=== PATIENT | female | born 1950 | race Caucasian/White ===

== ENCOUNTER 2017-02-13 10:49 | Emergency (ER) | payer OTHER ==
--- NOTE | 2017-02-13 11:26 | DR.GENAD ---
HPI - PCP Primary Care Physician: janak - HPI Comment HPI Comment: PATIENT PAIN PERCEPTION ON RIGHT SIDE POOR DUE TO PREVIOUS CVA. CURRENTLY LEFT PRECORDIAL DISCOMFORT AND INCRESING EDEMA TO HER EXTREMITIES. THE SWELLING GIVE HER DISCOMFORT. HER BLOOD PRESSURE IS ALSO RUNNING HIGH EVEN WITH HER MEDICATION. SHE IS WEAK. - Complaint/Symptoms Chief Complaint Doctors Comments: SWELLING EXTREMITIES, ELEVATED BP AND LELT SIDED CHEST PAIN. Chief Complaint:: patoient stated she took her blood pressure at home and it was 160/102. she stted she has been swelling in her hands for a couple of weeks. - Nurses notes reviewed Nurses Notes Review: Yes - Source History Provided: Patient - Mode of Arrival Mode of Arrival: Ambulatory - Timing Onset of Chief Complaint: 02/06/17 Came on: Suddenly - Duration Duration: Constant Duration: Days - Severity Severity: Moderate PMH - PMH Past Medical History: Yes Past Medical History: Dyslipidemia, Hypertension Past Surgical History: Yes Surgical History: Appendectomy, Hysterectomy - Family History History of Family Medical Conditions: No - Social History Does patient currently use any type of tobacco product: No Have you used tobacco products in the last 12 months: No Type of Tobacco Use: None Does any household member use tobacco: No Alcohol Use: None Do you use any recreational Drugs:: No Lives With: Family Lives Where: Home - infectious screening In the last 2 months have you had wt loss of >10#?: NO Have you had fever, night sweats or hemotysis?: No Have you traveled outside the country in the last 6 months?: No Isolation: Standard ROS - Review of Systems Constitutional: Weakness, Fatigue. negative: Chills, Fever Eyes: No Symptoms Reported. negative: Eye Pain, Discharge ENTM: Nose Congestion. negative: Ear Pain, Nose Discharge, Throat Pain Respiratoy: Non-Productive Cough, Short of Breath. negative: Wheezing, Hemoptysis Cardiovascular: Chest Pain, Edema. negative: Palpitations, Syncope Gastrointestinal/Abdominal: Nausea. negative: Abdominal Pain, Constipation, Diarrhea, Vomiting Genitourinary: No Symptoms Reported. negative: Dysuria, Frequency, Hematuria Neurological: Weakness. negative: Headache, Dizziness Musculoskeletal: Muscle Pain Integumentary: No Symptoms Reported Hematologic/Lymphatic: No Symptoms Reported Endocrine: No Symptoms Reported All Other Systems: Reviewed and Negative PE - Vital Signs Vitals: Temperature 98.0 F Pulse Rate [Right Brachial] 72 Pulse Rate 78 Respiratory Rate 18 Blood Pressure [Right Arm] 120/73 Blood Pressure 134/75 O2 Sat by Pulse Oximetry 93 - General Limitations: No Limitations General Appearance: Alert - Head Head Exam: Normal Inspection - Eyes Eye exam: Normal Appearance - ENT ENT Exam: Normal External Ear Exam External Ear Exam: Normal External Inspection TM/Canal Exam: Bilateral Normal Nose Exam: Normal Nose Exam Mouth Exam: Normal Inspection Throat Exam: Normal Inspection - Neck Neck Exam: Normal Inspection - Chest Chest Inspection: Symmetric Chest Wall Rise - Respiratory Respiratory Exam: Normal Lung Sounds Bilat Respiratory Exam: Bilateral Clear to Auscultation - Cardiovascular Cardiovascular Exam: Regular Rate, Normal Rhythm, Normal Heart Sounds - Abdominal Exam Abdominal Exam: Normal Bowel Sounds, Soft. negative: Tenderness - Extremities Extremities Exam: Edema. negative: Full ROM, Tenderness - Back Back Exam: Normal Inspection - Neurologic Neurological Exam: Alert, Oriented X3, Motor Sensory Deficit (RESIDUAL RIGHT SIDED FROM PREVIUOS STROKE.) - Psychiatric Psychiatric Exam: Anxious MDM - Additional Information Additional Information Obtained From: Family - Differential Diagnosis Differential Diagnosis: CHEST PAIN, SWELLIN/EDEMA, HYPERTENSION Course - Treatment Treatment: SEE ORDERS. - Consultation Consultation Comments: DISCUSS PATIENT WITH DR. VALVERDE. HE WILL ADMIT PATIENT. - Education/Counseling Education/Counseling: Patient, Family, Education Educated On: Diagnosis ROR - Labs Reviewed Laboratory Results Reviewed?: Yes Result Diagrams: 02/14/17 04:20 02/14/17 04:20 Laboratory: WBC 6.6 X10^3/uL (3.6-10.0) 02/14/17 04:20 RBC 4.29 X10^6/uL (3.5-5.4) 02/14/17 04:20 Hgb 13.1 g/dL (12.0-16.0) 02/14/17 04:20 Hct 39.0 % (36.0-47.0) 02/14/17 04:20 MCV 90.8 fL (80.0-100.0) 02/14/17 04:20 MCH 30.6 pg (27.0-34.0) 02/14/17 04:20 MCHC 33.7 g/dL (33.0-35.0) 02/14/17 04:20 RDW 12.3 % (11.6-16.5) 02/14/17 04:20 Plt Count 219 X10^3/uL (150.0-450.0) 02/14/17 04:20 MPV 10.5 fL (7.4-11.0) 02/14/17 04:20 Neut % 40.2 % (42.0-75.0) L 02/14/17 04:20 Lymph % 47.0 % (21.0-51.0) 02/14/17 04:20 [place] % 8.8 % (0.0-13.0) 02/14/17 04:20 Eos % 3.2 % (0.9-2.9) H 02/14/17 04:20 Baso % 0.8 % (0.2-1.0) 02/14/17 04:20 Neut # 2.6 x10^3/uL (2.2-4.8) 02/14/17 04:20 Lymph # 3.1 X10^3/uL (1.3-2.9) H 02/14/17 04:20 [place] # 0.6 x10^3/uL (0.3-0.8) 02/14/17 04:20 Eos # 0.2 x10^3/uL (0.0-0.2) 02/14/17 04:20 Baso # 0.0 X10^3/uL (0.0-0.1) 02/14/17 04:20 Absolute Nucleated RBC 0.1 /100WBC 02/14/17 04:20 INR Target Range - 02/14/17 04:20 INR 1.61 (0.8-1.3) H 02/14/17 04:20 Sodium 143 mmol/L (136-145) 02/14/17 04:20 Corrected Sodium TNP 02/14/17 04:20 Potassium 3.2 mmol/L (3.5-5.1) L 02/14/17 04:20 Chloride 105 mmol/L (98-107) 02/14/17 04:20 Carbon Dioxide 27.6 mmol/L (21-32) 02/14/17 04:20 BUN 10 mg/dL (7-18) 02/14/17 04:20 Creatinine 0.80 mg/dL (0.55-1.02) 02/14/17 04:20 Est GFR (MDRD) Af Amer > 60 (>60) 02/14/17 04:20 Est GFR (MDRD) Non-Af > 60 (>60) 02/14/17 04:20 Glucose 93 mg/dL (65-99) 02/14/17 04:20 Calcium 8.6 mg/dL (8.5-10.1) 02/14/17 04:20 Corrected Calcium TNP 02/14/17 04:20 Total Bilirubin 0.30 mg/dL (0.2-1.0) 02/14/17 04:20 AST 30 Units/L (15-37) 02/14/17 04:20 ALT 23 Units/L (12-78) 02/14/17 04:20 Alkaline Phosphatase 66 Units/L (46-116) 02/14/17 04:20 Creatine Kinase 143 Units/L (26-192) 02/14/17 00:20 CK-MB (CK-2) 2.1 ng/mL (0-4.0) 02/14/17 00:20 CK/CKMB % Calc 1.5 % (<4) 02/14/17 00:20 Troponin I < 0.02 ng/mL (0-1.5) 02/14/17 00:20 B-Natriuretic Peptide 34.0 pg/mL (0-79) 02/13/17 11:46 Total Protein 7.7 g/dL (6.4-8.2) 02/14/17 04:20 Albumin 3.4 g/dL (3.4-5.0) 02/14/17 04:20 Globulin 4.3 g/dL (2.5-4.5) 02/14/17 04:20 Albumin/Globulin Ratio 0.8 Ratio (1.1-2.1) L 02/14/17 04:20 Specimen Type Clean catch urine 02/13/17 14:12 Urine Color Yellow (YELLOW) 02/13/17 14:12 Urine Appearance Clear (CLEAR) 02/13/17 14:12 Urine pH 7.0 (5.0 - 8.0) 02/13/17 14:12 Ur Specific [place] 1.005 (1.000-1.030) 02/13/17 14:12 Urine Protein Negative (NEGATIVE) 02/13/17 14:12 Urine Glucose (UA) Negative (NEGATIVE) 02/13/17 14:12 Urine Ketones Negative (NEGATIVE) 02/13/17 14:12 Urine Occult Blood Negative (NEGATIVE) 02/13/17 14:12 Urine Nitrite Negative (NEGATIVE) 02/13/17 14:12 Urine Bilirubin Negative (NEGATIVE) 02/13/17 14:12 Urine Urobilinogen Normal (NORMAL) 02/13/17 14:12 Ur Leukocyte Esterase Negative (NEGATIVE) 02/13/17 14:12 Urine RBC 0-2 /HPF (NEGATIVE) 02/13/17 14:12 Urine WBC 0-2 /HPF (NEGATIVE) 02/13/17 14:12 Ur Squamous Epith Cells Rare /HPF (NEGATIVE) 02/13/17 14:12 Urine Bacteria Trace /HPF (NEGATIVE) 02/13/17 14:12 Ur Culture Indicated? No/not indicated 02/13/17 14:12 - XRAY XRAY Interpreted by: Radiologist XRAY Findings: DISCUSS REPORT WITH OPATIENT. - EKG Rhythm: NSR (EKG NOTED) - Diagnosis Discharge Problem: Swelling Chest pain Qualifiers: Chest pain type: precordial pain Qualified Code(s): R07.2 - Precordial pain HTN (hypertension) Qualifiers: Hypertension type: essential hypertension Qualified Code(s): I10 - Essential ( primary) hypertension - Discharge Plan Disposition: 09 ADMITTED INPATIENT Condition: Stable - Follow ups/Referrals - Instructions
[2017-02-13 12:04] LABS: BASOPHILS % (AUTO) 0.8 % (0.2-1.0); EOSINOPHILS # (AUTO) 0.1 x10^3/uL (0.0-0.2); EOSINOPHILS % (AUTO) 2.8 % (0.9-2.9); HEMATOCRIT 37.9 % (36.0-47.0); MEAN CORPUSCULAR HEMOGLOBIN 30.7 pg (27.0-34.0); MEAN CORPUSCULAR HGB CONC 34.4 g/dL (33.0-35.0); MEAN CORPUSCULAR VOLUME 89.3 fL (80.0-100.0); MEAN PLATELET VOLUME 9.9 fL (7.4-11.0); MONOCYTES # (AUTO) 0.4 x10^3/uL (0.3-0.8); NEUTROPHILS % (AUTO) 43.4 % (42.0-75.0); PLATELET COUNT 222 X10^3/uL (150.0-450.0); RED BLOOD COUNT 4.24 X10^6/uL (3.5-5.4); RED CELL DISTRIBUTION WIDTH 12.3 % (11.6-16.5); WHITE BLOOD COUNT 4.5 X10^3/uL (3.6-10.0)
--- NOTE | 2017-02-13 12:10 | RAD ---
HISTORY: Chest pain Study: Single view chest Comparison: None Findings: Single portable upright view. Lung volumes are reduced with resultant bronchovascular crowding. The lungs are clear without consolidation, effusion or pneumothorax. The cardiac and mediastinal contour s are within normal limits. The soft tissues are unremarkable. IMPRESSION: 1. Low lung volumes without acute abnormality. Reported By:
[2017-02-13 12:12] LABS: BLOOD UREA NITROGEN 11 mg/dL (7-18); CALCIUM 8.9 mg/dL (8.5-10.1); CARBON DIOXIDE 27.4 mmol/L (21-32); CHLORIDE 106 mmol/L (98-107); COR NA(FOR HYPERGLY) 143 mmol/L (136-145); CREATININE 0.93 mg/dL (0.55-1.02); GLUCOSE 120 mg/dL (65-99); SODIUM 143 mmol/L (136-145); TROPONIN I < 0.02 ng/mL (0-1.5); eGFR BLACK RACES > 60 (>60); eGFR NON BLACK RACES > 60 (>60)
[2017-02-13 12:14] LABS: ALANINE AMINOTRANSFERASE 24 Units/L (12-78); ALBUMIN 3.7 g/dL (3.4-5.0); ALKALINE PHOSPHATASE 66 Units/L (46-116); ASPARTATE AMINO TRANSFERASE 31 Units/L (15-37); CKMB % 1.2 % (<4); CREATINE KINASE 162 Units/L (26-192)
[2017-02-13 14:37] LABS: BILIRUBIN,URINE NEGATIVE (NEGATIVE); GLUCOSE, URINE NEGATIVE (NEGATIVE); KETONES,URINE NEGATIVE (NEGATIVE); NITRITES,URINE NEGATIVE (NEGATIVE); UROBILINOGEN,URINE NORMAL (NORMAL)
[2017-02-13 14:43] LABS: BLOOD/HEMOGLOBIN,URINE NEGATIVE (NEGATIVE); LEUKOCYTE ESTERASE ,URINE NEGATIVE (NEGATIVE); PROTEIN,URINE NEGATIVE (NEGATIVE)
[2017-02-13 14:52] LABS: APPEARANCE,URINE CLEAR (CLEAR); BACTERIA,URINE TRACE /HPF (NEGATIVE); COLOR,URINE YELLOW (YELLOW); RBC,URINE 0-2 /HPF (NEGATIVE); SQUAMOUS EPITHELIAL CELL,UR RARE /HPF (NEGATIVE)
[2017-02-13 18:09] LABS: CKMB % 1.6 % (<4); CREATINE KINASE 157 Units/L (26-192); CREATINE KINASE MB 2.5 ng/mL (0-4.0); TROPONIN I < 0.02 ng/mL (0-1.5)
[2017-02-13] MEDS ORDERED: COLACE CAP 100 MG PO PRN (19:59)
[2017-02-13 21:16] VITALS: BMI 23.2
[2017-02-14 01:24] LABS: CKMB % 1.5 % (<4); CREATINE KINASE 143 Units/L (26-192); CREATINE KINASE MB 2.1 ng/mL (0-4.0); TROPONIN I < 0.02 ng/mL (0-1.5)
[2017-02-14] MEDS: NORCO 10/325 TAB PO PRN ×2 (01:28→22:01)
[2017-02-14 05:19] LABS: BASOPHILS % (AUTO) 0.8 % (0.2-1.0); EOSINOPHILS # (AUTO) 0.2 x10^3/uL (0.0-0.2); EOSINOPHILS % (AUTO) 3.2 % (0.9-2.9); HEMOGLOBIN 13.1 g/dL (12.0-16.0); LYMPHOCYTES # (AUTO) 3.1 X10^3/uL (1.3-2.9); MEAN CORPUSCULAR HEMOGLOBIN 30.6 pg (27.0-34.0); MEAN CORPUSCULAR HGB CONC 33.7 g/dL (33.0-35.0); MEAN CORPUSCULAR VOLUME 90.8 fL (80.0-100.0); MEAN PLATELET VOLUME 10.5 fL (7.4-11.0); MONOCYTES # (AUTO) 0.6 x10^3/uL (0.3-0.8); MONOCYTES % (AUTO) 8.8 % (0.0-13.0); NEUTROPHILS # (AUTO) 2.6 x10^3/uL (2.2-4.8); NEUTROPHILS % (AUTO) 40.2 % (42.0-75.0); PLATELET COUNT 219 X10^3/uL (150.0-450.0); RED BLOOD COUNT 4.29 X10^6/uL (3.5-5.4); RED CELL DISTRIBUTION WIDTH 12.3 % (11.6-16.5); WHITE BLOOD COUNT 6.6 X10^3/uL (3.6-10.0)
[2017-02-14 05:38] LABS: ALANINE AMINOTRANSFERASE 23 Units/L (12-78); ALBUMIN 3.4 g/dL (3.4-5.0); ALKALINE PHOSPHATASE 66 Units/L (46-116); ASPARTATE AMINO TRANSFERASE 30 Units/L (15-37); BLOOD UREA NITROGEN 10 mg/dL (7-18); CALCIUM 8.6 mg/dL (8.5-10.1); CARBON DIOXIDE 27.6 mmol/L (21-32); CHLORIDE 105 mmol/L (98-107); GLUCOSE 93 mg/dL (65-99); SODIUM 143 mmol/L (136-145); TOTAL PROTEIN 7.7 g/dL (6.4-8.2); eGFR BLACK RACES > 60 (>60); eGFR NON BLACK RACES > 60 (>60)
[2017-02-14] MEDS ORDERED: K-DUR TAB 20 MEQ PO PRN (05:45)
[2017-02-14] MEDS ORDERED: POTASSIUM CHLORIDE LIQ 20 MEQ UDC PO PRN (05:45)
[2017-02-14] MEDS ORDERED: K-LYTE EFFERVESCENT PO PRN (05:45)
[2017-02-14] MEDS ORDERED: K-RIDER 10 MEQ/NS 100 ML 10 MEQ/100 ML BAG IV PRN (05:45)
[2017-02-14] MEDS ORDERED: NORCO 10/325 TAB PO PRN (12:44)
[2017-02-14] MEDS ORDERED: [UNRECOGNIZED DRUG - OTHER] PO SCH (12:45)
[2017-02-14] MEDS ORDERED: [UNRECOGNIZED DRUG - OTHER] PO SCH (12:45)
[2017-02-14] MEDS ORDERED: [UNRECOGNIZED DRUG - OTHER] PO SCH (12:45)
[2017-02-14] MEDS ORDERED: ZANTAC PO SCH (13:00)
[2017-02-14] MEDS: DILANTIN CAP 100 MG EXT REL PO SCH ×2 (14:45→22:03)
[2017-02-14] MEDS: ZANAFLEX PO SCH ×2 (14:45→22:03)
[2017-02-14] MEDS: SINGULAIR TAB 10 MG PO SCH (14:46)
--- NOTE | 2017-02-14 15:34 | DR.H&P ---
H&P - History & Physical for Day of: H&P Date: 02/13/17 - Chief Complaint Chief Complaint: CHEST PAIN, LOWER EXTREMITY EDEMA - Allergies Allergies/Adverse Reactions: Allergies Allergy/AdvReac Type Severity Reaction Status Date / Time No Known Drug Allergy Allergy Verified 02/13/17 10:59 - History of Present Illness History of Present Illness: THIS IS A 66 YEAR OLD FEMALE, WHO IS A PATIENT OF OURS. SHE PRESENTS TO THE EMERGENCY ROOM WITH COMPLAINTS OF LEFT-SIDED CHEST PAIN, ELEVATED BLOOD PRESSURE, AND INCREASED SWELLING TO LOWER EXTREMITIES. 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 PATIENT REPORTS BLOOD PRESSURE WAS 160/102 AT HOME AND SHE REPORTS COMPLIANCE WITH HOME MEDICATIONS. SHE REPORTS ASSOCIATED FATIGUE, MALAISE, NOSE CONGESTION, AND GENERLIZED MUSCLE WEAKNESS. SHE DENIES FEVER. LABS OBTAINED. CBC WNL. CMP WNL EXCEPT: GLUCOSE 120. CARDIAC ENZYMES WNL. EKG: SINUS RHYTHM, RATE 71. CHEST XRAY REPORTS LOW LUNG VOLUMES; NO ACUTE ABNORMALITY. WE WILL ADMIT PATIENT FOR FURTHER TREATMENT AND EVALUATION. WE WILL FOLLOW UP IN AM WITH LABS. - Past Medical History Past Medical History: Anemia, Arthritis, CVA, Dyslipidemia, GERD, Hypertension Additional Medical History: Vision Deficit, Previous Blood Transfusion - Past Surgical History Surgical History: Appendectomy, Hysterectomy - Family History Family Medical History: denies: Diabetes Mellitus, Cancer, [place], Coronary Artery Disease, Heart Failure, Sudden Cardiac , Hypertension - Social History Does patient currently use any type of tobacco product: No Have you used tobacco products in the last 12 months: No Type of Tobacco Use: None Does any household member use tobacco: No Alcohol Use: None Drug Use: None - Medications Home Medications: Hydrocodone-Acetaminophen [Hydrocodone/Acetaminophen 10-325 mg] 1 tab PO DAILY PRN 02/13/17 [History Confirmed 02/13/17] Lisinopril & Hydrochlorothiazi [Lisinopril/Hydrochlorothi 20-12.5 mg] 1 tab PO DAILY 02/13/17 [History Confirmed 02/13/17] Ranitidine HCl [Ranitidine [address]] 1 tab PO BID 02/13/17 [History Confirmed 02/13/17] Warfarin Sodium [COUMADIN 4 MG *] 2 mg PO DAILY 02/13/17 [History Confirmed 01/27] - Review of Systems Constitutional: Weakness, Malaise Eyes: No Symptoms Reported. denies: Pain, Vision Change, Conjunctivae Inflammation, Eyelid Inflammation, Redness ENT: No Symptoms Reported. denies: Ear Pain, Ear Discharge, Nose Pain, Nose Discharge, Nose Congestion, Mouth Pain, Mouth Swelling, Throat Pain, Throat Swelling Respiratory: No Symptoms Reported. denies: Cough, Shortness of Breath, Hemoptysis, SOB with Excertion, Pleuritic Pain, Sputum, Wheezing Cardiovascular: Chest Pain, Edema. denies: Palpitations, Orthopnea, Paroxysmal Noc. Dyspnea Gastrointestinal: No Symptoms Reported. denies: Nausea, Vomiting, Abdominal Pain, Diarrhea, Constipation, Melena, Hematochezia Genitourinary: No Symptoms Reported. denies: Dysuria, Frequency, Incontinence, Hematuria, Retention Musculoskeletal: No Symptoms Reported. denies: Shoulder Pain, Arm Pain, Back Pain, Hand Pain, Leg Pain, Foot Pain, Neck Pain Skin: No Symptoms Reported. denies: Rash, Lesions, Jaundice, Bruising, Wound, Ecchymosis Neurological: No Symptoms Reported. denies: Weakness, Numbness, Incoordination , Change in Speech, Confusion, Seizures - Physical Exam Vital Signs: Temperature 97.9 F Pulse Rate [Left Brachial] 73 Pulse Rate [Right Brachial] 73 Respiratory Rate 20 Blood Pressure [Left Arm] 113/70 Blood Pressure [Right Arm] 123/61 O2 Sat by Pulse Oximetry 95 Oriented: Normal, Time, Person, Place Eyes: Normal. negative: Blurred Vision, Diplopia, Discharge, Pain, Redness, Photophobia Ear: Normal. negative: Swelling, Ecchymosis, Hemotypanum, Abrasion, Laceration Nose: Normal. negative: Injected, Discharge, Blood Throat: Normal. negative: Tonsillar Hypertrophy, Red, Exudate Respiratory: Clear Throughout Cardiovascular: Normal. negative: Murmur, Edema : Normal. negative: Dysuria, Hematuria, Frequency, Discharge, Bleeding, Auscultation: Bowel Sounds: Normal. negative: Bruit Palpation: Normal. negative: Spleen Enlarged, Liver Enlarged, Mass Pulsatile Tenderness: Normal. negative: Rebound, Guarding, Rigidity Skin: Normal. negative: Diaphoresis, Wound, Bruising, Ecchymosis Musculoskeletal: Normal Psychiatric: Normal Mood Description: Calm, Appropriate Affect: Normal Speech Pattern: Clear, Appropriate - Assessment/Plan (1) Chest pain Qualifiers: Chest pain type: precordial pain Ischemic chest pain type: I Qualified Code(s): R07.2 - Precordial pain Status: Acute Plan: ADMIT PATIENT, OBTAIN SERIAL CARDIAC ENZYMES AND EKG'S, MONITOR ON TELEMETRY. (2) HTN (hypertension) Qualifiers: Hypertension type: essential hypertension Qualified Code(s): I10 - Essential (primary) hypertension Status: Acute Plan: CONTINUE HOME MEDICATIONS, MONITOR. (3) Numbness and tingling in both hands Status: Acute Plan: ABOVE. (4) Swelling Status: Acute Plan: CONTINUE TO MONITOR. (5) GERD (gastroesophageal reflux disease) Qualifiers: Esophagitis presence: esophagitis presence not specified Qualified Code(s) : K21.9 - Gastro-esophageal reflux disease without esophagitis Status: Chronic (6) Hyperlipemia Qualifiers: Hyperlipidemia type: mixed hyperlipidemia Qualified Code(s): E78.2 - Mixed hyperlipidemia Status: Chronic (7) History of CVA (cerebrovascular accident) Status: Chronic
--- NOTE | 2017-02-14 15:56 | PCM.PROG ---
Progress Note - Progress Note for Day of Date: 02/14/17 - Subjective Subjective: PATIENT REPORTS CHEST DISCOMFORT CONTINUES. PATIENT REPORTS CHEST PAIN IS MOSTLY LEFT-SIDED. PATIENT IS NOTED WITH MILD SHORTNESS OF BREATH. CBC WNL. CMP WNL EXCEPT: POTASSIUM 3.2. CARDIAC ENZYMES WNL. WE WILL OBTAIN AN ECHO TODAY AND OBTAIN A FASTING LIPID PANEL IN AM. WE WILL CONTINUE TO MONITOR ON TELEMETRY AND WE WILL PLAN FOR DISCHARGE IN AM, PROVIDING PATIENT IS STABLE. - Past Medical Family Social History Past Med/Fam/Surg Hx: No changes since H&P Allergies: Allergies No Known Drug Allergy Allergy (Verified 02/13/17 10:59) - Review of Systems ROS: No change since H&P - Vital Signs and I&O's Vital Signs: Temperature 97.9 F Pulse Rate [Left Brachial] 73 Pulse Rate [Right Brachial] 73 Respiratory Rate 20 Blood Pressure [Left Arm] 113/70 Blood Pressure [Right Arm] 123/61 O2 Sat by Pulse Oximetry 95 Intake and Output: Intake & Output 02/12/17 02/13/17 02/14/17 02/15/17 11:59 11:59 11:59 11:59 Intake Total 2910 Balance 2910 - Physical Exam Oriented: Normal, Time, Person, Place Eyes: Normal. negative: Blurred Vision, Diplopia, Discharge, Pain, Redness, Photophobia Ear: Normal. negative: Swelling, Ecchymosis, Hemotypanum, Abrasion, Laceration Nose: Normal. negative: Injected, Discharge, Blood Throat: Normal. negative: Tonsillar Hypertrophy, Red, Exudate Respiratory: Normal Cardiovascular: Normal. negative: Murmur, Edema : Normal. negative: Dysuria, Hematuria, Frequency, Discharge, Bleeding, Auscultation: Bowel Sounds: Normal. negative: Bruit Palpation: Normal. negative: Spleen Enlarged, Liver Enlarged, Mass Pulsatile Tenderness: Normal. negative: Rebound, Guarding, Rigidity Skin: Normal. negative: Diaphoresis, Wound, Bruising, Ecchymosis Musculoskeletal: Normal Psychiatric: Normal Mood Description: Calm, Appropriate Affect: Normal Speech Pattern: Clear, Appropriate - Laboratory and Diagnostics Result Diagrams: 02/14/17 04:20 02/14/17 08:20 Labs: Laboratory WBC 6.6 X10^3/uL (3.6-10.0) 02/14/17 04:20 RBC 4.29 X10^6/uL (3.5-5.4) 02/14/17 04:20 Hgb 13.1 g/dL (12.0-16.0) 02/14/17 04:20 Hct 39.0 % (36.0-47.0) 02/14/17 04:20 MCV 90.8 fL (80.0-100.0) 02/14/17 04:20 MCH 30.6 pg (27.0-34.0) 02/14/17 04:20 MCHC 33.7 g/dL (33.0-35.0) 02/14/17 04:20 RDW 12.3 % (11.6-16.5) 02/14/17 04:20 Plt Count 219 X10^3/uL (150.0-450.0) 02/14/17 04:20 MPV 10.5 fL (7.4-11.0) 02/14/17 04:20 Neut % 40.2 % (42.0-75.0) L 02/14/17 04:20 Lymph % 47.0 % (21.0-51.0) 02/14/17 04:20 [place] % 8.8 % (0.0-13.0) 02/14/17 04:20 Eos % 3.2 % (0.9-2.9) H 02/14/17 04:20 Baso % 0.8 % (0.2-1.0) 02/14/17 04:20 Neut # 2.6 x10^3/uL (2.2-4.8) 02/14/17 04:20 Lymph # 3.1 X10^3/uL (1.3-2.9) H 02/14/17 04:20 [place] # 0.6 x10^3/uL (0.3-0.8) 02/14/17 04:20 Eos # 0.2 x10^3/uL (0.0-0.2) 02/14/17 04:20 Baso # 0.0 X10^3/uL (0.0-0.1) 02/14/17 04:20 Absolute Nucleated RBC 0.1 /100WBC 02/14/17 04:20 INR Target Range - 02/14/17 04:20 INR 1.61 (0.8-1.3) H 02/14/17 04:20 Sodium 143 mmol/L (136-145) 02/14/17 04:20 Corrected Sodium TNP 02/14/17 04:20 Potassium 4.1 mmol/L (3.5-5.1) 02/14/17 08:20 Chloride 105 mmol/L (98-107) 02/14/17 04:20 Carbon Dioxide 27.6 mmol/L (21-32) 02/14/17 04:20 BUN 10 mg/dL (7-18) 02/14/17 04:20 Creatinine 0.80 mg/dL (0.55-1.02) 02/14/17 04:20 Est GFR (MDRD) Af Amer > 60 (>60) 02/14/17 04:20 Est GFR (MDRD) Non-Af > 60 (>60) 02/14/17 04:20 Glucose 93 mg/dL (65-99) 02/14/17 04:20 Calcium 8.6 mg/dL (8.5-10.1) 02/14/17 04:20 Corrected Calcium TNP 02/14/17 04:20 Total Bilirubin 0.30 mg/dL (0.2-1.0) 02/14/17 04:20 AST 30 Units/L (15-37) 02/14/17 04:20 ALT 23 Units/L (12-78) 02/14/17 04:20 Alkaline Phosphatase 66 Units/L (46-116) 02/14/17 04:20 Creatine Kinase 143 Units/L (26-192) 02/14/17 00:20 CK-MB (CK-2) 2.1 ng/mL (0-4.0) 02/14/17 00:20 CK/CKMB % Calc 1.5 % (<4) 02/14/17 00:20 Troponin I < 0.02 ng/mL (0-1.5) 02/14/17 00:20 B-Natriuretic Peptide 34.0 pg/mL (0-79) 02/13/17 11:46 Total Protein 7.7 g/dL (6.4-8.2) 02/14/17 04:20 Albumin 3.4 g/dL (3.4-5.0) 02/14/17 04:20 Globulin 4.3 g/dL (2.5-4.5) 02/14/17 04:20 Albumin/Globulin Ratio 0.8 Ratio (1.1-2.1) L 02/14/17 04:20 Specimen Type Clean catch urine 02/13/17 14:12 Urine Color Yellow (YELLOW) 02/13/17 14:12 Urine Appearance Clear (CLEAR) 02/13/17 14:12 Urine pH 7.0 (5.0 - 8.0) 02/13/17 14:12 Ur Specific [place] 1.005 (1.000-1.030) 02/13/17 14:12 Urine Protein Negative (NEGATIVE) 02/13/17 14:12 Urine Glucose (UA) Negative (NEGATIVE) 02/13/17 14:12 Urine Ketones Negative (NEGATIVE) 02/13/17 14:12 Urine Occult Blood Negative (NEGATIVE) 02/13/17 14:12 Urine Nitrite Negative (NEGATIVE) 02/13/17 14:12 Urine Bilirubin Negative (NEGATIVE) 02/13/17 14:12 Urine Urobilinogen Normal (NORMAL) 02/13/17 14:12 Ur Leukocyte Esterase Negative (NEGATIVE) 02/13/17 14:12 Urine RBC 0-2 /HPF (NEGATIVE) 02/13/17 14:12 Urine WBC 0-2 /HPF (NEGATIVE) 02/13/17 14:12 Ur Squamous Epith Cells Rare /HPF (NEGATIVE) 02/13/17 14:12 Urine Bacteria Trace /HPF (NEGATIVE) 02/13/17 14:12 Ur Culture Indicated? No/not indicated 02/13/17 14:12 - Plan (1) Chest pain Status: Acute Qualifiers: Chest pain type: precordial pain Ischemic chest pain type: I Qualified Code(s): R07.2 - Precordial pain Plan: OBTAIN ECHO, OBTAIN FLP, MONITOR ON TELEMETRY. (2) HTN (hypertension) Status: Acute Qualifiers: Hypertension type: essential hypertension Qualified Code(s): I10 - Essential (primary) hypertension Plan: CONTINUE HOME MEDICATIONS, MONITOR. (3) Numbness and tingling in both hands Status: Acute Plan: ABOVE. (4) Swelling Status: Acute Plan: CONTINUE TO MONITOR. (5) GERD (gastroesophageal reflux disease) Status: Chronic Qualifiers: Esophagitis presence: esophagitis presence not specified Qualified Code(s) : K21.9 - Gastro-esophageal reflux disease without esophagitis (6) Hyperlipemia Status: Chronic Qualifiers: Hyperlipidemia type: mixed hyperlipidemia Qualified Code(s): E78.2 - Mixed hyperlipidemia (7) History of CVA (cerebrovascular accident) Status: Chronic
[2017-02-14] MEDS ORDERED: [UNRECOGNIZED DRUG - OTHER] PO SCH (21:00)
[2017-02-14] MEDS ORDERED: ELAVIL PO SCH (21:00)
[2017-02-14] MEDS ORDERED: COUMADIN TAB 4 MG PO SCH ×2 (21:00)
[2017-02-14] MEDS ORDERED: TRICOR TAB 160 MG PO SCH (21:00)
[2017-02-14] MEDS ORDERED: ZOCOR TAB 40 MG PO SCH (21:00)
[2017-02-14] MEDS ORDERED: COUMADIN TAB 2 MG PO SCH (21:00)
[2017-02-14] MEDS ORDERED: ANTIVERT TAB 25 MG PO SCH (21:00)
[2017-02-14] MEDS ORDERED: KLONOPIN TAB 0.5 MG PO SCH (21:00)
[2017-02-14] MEDS ORDERED: ASPIRIN EC 81 MG PO SCH (21:00)
[2017-02-14] MEDS: PEPCID TAB 20 MG PO SCH (22:04)
[2017-02-15 05:37] LABS: BASOPHILS # (AUTO) 0.1 X10^3/uL (0.0-0.1); BASOPHILS % (AUTO) 0.8 % (0.2-1.0); EOSINOPHILS # (AUTO) 0.2 x10^3/uL (0.0-0.2); EOSINOPHILS % (AUTO) 3.1 % (0.9-2.9); HEMATOCRIT 38.7 % (36.0-47.0); HEMOGLOBIN 13.2 g/dL (12.0-16.0); LYMPHOCYTES # (AUTO) 3.6 X10^3/uL (1.3-2.9); LYMPHOCYTES % (AUTO) 51.8 % (21.0-51.0); MEAN CORPUSCULAR HEMOGLOBIN 30.9 pg (27.0-34.0); MEAN CORPUSCULAR HGB CONC 34.2 g/dL (33.0-35.0); MEAN CORPUSCULAR VOLUME 90.4 fL (80.0-100.0); MEAN PLATELET VOLUME 10.3 fL (7.4-11.0); MONOCYTES # (AUTO) 0.5 x10^3/uL (0.3-0.8); MONOCYTES % (AUTO) 7.3 % (0.0-13.0); NEUTROPHILS # (AUTO) 2.5 x10^3/uL (2.2-4.8); PLATELET COUNT 218 X10^3/uL (150.0-450.0); RED BLOOD COUNT 4.28 X10^6/uL (3.5-5.4); RED CELL DISTRIBUTION WIDTH 12.4 % (11.6-16.5); WHITE BLOOD COUNT 6.9 X10^3/uL (3.6-10.0)
[2017-02-15 05:41] LABS: ALANINE AMINOTRANSFERASE 23 Units/L (12-78); ALBUMIN 3.4 g/dL (3.4-5.0); ALKALINE PHOSPHATASE 62 Units/L (46-116); ASPARTATE AMINO TRANSFERASE 27 Units/L (15-37); BLOOD UREA NITROGEN 17 mg/dL (7-18); CALCIUM 8.8 mg/dL (8.5-10.1); CARBON DIOXIDE 25.6 mmol/L (21-32); CHLORIDE 107 mmol/L (98-107); CHOL/HDL RATIO 7.2 (0.0-5.0); CHOLESTEROL 253 mg/dL (0-200); GLUCOSE 97 mg/dL (65-99); HDL CHOLESTEROL 35 mg/dL (40-60); SODIUM 142 mmol/L (136-145); TOTAL PROTEIN 7.6 g/dL (6.4-8.2); TRIGLYCERIDES 211 mg/dL (0-150); eGFR BLACK RACES > 60 (>60); eGFR NON BLACK RACES > 60 (>60)
[2017-02-15] MEDS: DILANTIN CAP 100 MG EXT REL PO SCH (05:43)
[2017-02-15] MEDS ORDERED: HYDROCHLOROTHIAZIDE 12.5 MG CAP PO SCH (09:00)
[2017-02-15] MEDS ORDERED: ZESTRIL TAB 20 MG PO SCH (09:00)
[2017-02-15] MEDS ORDERED: ESTRACE PO SCH (09:00)
[2017-02-15] MEDS ORDERED: ZESTRIL TAB 20 MG ONE (09:32)
[2017-02-15] MEDS: SINGULAIR TAB 10 MG PO SCH (09:38)
[2017-02-15] MEDS: ZANAFLEX PO SCH (09:39)
[2017-02-15] MEDS: PEPCID TAB 20 MG PO SCH (09:39)
[2017-02-15 09:41] VITALS: BP 116/61
== END 2017-02-15 11:55 | disposition home or self-care (01) ==
LOC: ER 11:09 → MED/SURG 15:45
PROVIDERS: ADMIT Internal Medicine; ATTEND Internal Medicine
DX: R07.2 Precordial pain (principal); R60.0 Localized edema; R94.31 Abnormal electrocardiogram [ECG] [EKG]; R53.83 Other fatigue; R06.02 Shortness of breath; R20.0 Anesthesia of skin; Z79.01 Long term (current) use of anticoagulants; R79.1 Abnormal coagulation profile; Z86.73 Personal history of transient ischemic attack (TIA), and cerebral infarction without residual deficits; M62.81 Muscle weakness (generalized); K21.9 Gastro-esophageal reflux disease without esophagitis; I10 Essential (primary) hypertension; E78.2 Mixed hyperlipidemia
CPT/HCPCS: 36415; 71010; 80053; 80061; 81001; 82550; 82553; 83880; 84132; 84484; 85025; 85610; 93005; 93306; 94760; 99284; A4216; A4222; G0378

== ENCOUNTER 2017-05-23 09:54 | Day surgery (SDC) | payer OTHER ==
[2017-05-23] MEDS ORDERED: NS 500 ML IV 500 ML IV ONE (09:58)
[2017-05-23] MEDS ORDERED: DUREZOL OPHTH 1 DOSE AFFEYE ONE (10:00)
[2017-05-23] MEDS ORDERED: TETRACAINE 0.5% OPHTH 1 DOSE AFFEYE ONE ×4 (10:05→13:11)
[2017-05-23] MEDS ORDERED: VIGAMOX 0.5% OPHTH 1 DOSE AFFEYE ONE ×3 (10:16→13:37)
[2017-05-23] MEDS ORDERED: ALPHAGAN-P OPHTH 1 DOSE AFFEYE ONE (10:17)
[2017-05-23] MEDS ORDERED: AK-DILATE 2.5% OPHTH 1 DOSE OP ONE ×3 (10:18→10:20)
[2017-05-23] MEDS ORDERED: MYDRIACIL OPHTH 1 DOSE AFFEYE ONE ×3 (10:18→10:20)
[2017-05-23] MEDS ORDERED: CYCLOGYL 1% OPHTH 1 DOSE OP ONE ×3 (10:18→10:20)
[2017-05-23] MEDS ORDERED: BETADINE OPHTH SOLN 5% EACHEYE ONE (13:11)
[2017-05-23] MEDS ORDERED: XYLOCAINE-MPF 1% IJ ONE (13:23)
[2017-05-23] MEDS ORDERED: BSS OPHTH (PLAIN) 500 ML with VANCOMYCIN HCL 500 MG VIAL 25 MG, ADRENALINE CHL INJ 1 MG IR ONE ×3 (13:23)
[2017-05-23] MEDS ORDERED: DUOVISC IO ONE (13:23)
[2017-05-23] MEDS ORDERED: ADRENALINE CHL INJ IJ ONE (13:23)
[2017-05-23] MEDS ORDERED: DIPRIVAN VIAL ONE (14:14)
[2017-05-23] MEDS ORDERED: VERSED ONE (14:14)
[2017-05-23 15:22] VITALS: BP 121/78
== END 2017-05-23 14:45 | disposition home or self-care (01) ==
LOC: SURG1 09:54
PROVIDERS: ATTEND Ophthalmology
PROC: 08DK3ZZ Extraction of Left Lens, Percutaneous Approach (ICD-10-PCS; principal; 2017-05-23 15:15)
PROC: 08RK3JZ Replacement of Left Lens with Synthetic Substitute, Percutaneous Approach (ICD-10-PCS; principal; 2017-05-23 15:15)
DX: H25.12 Age-related nuclear cataract, left eye (principal); H52.222 Regular astigmatism, left eye
CPT/HCPCS: A4217; J0170; J2250; J3370; J3490

== ENCOUNTER 2017-06-06 06:50 | Day surgery (SDC) | payer OTHER ==
[2017-06-06] MEDS ORDERED: TETRACAINE 0.5% OPHTH 1 DOSE AFFEYE ONE ×2 (07:15→09:26)
[2017-06-06] MEDS ORDERED: VIGAMOX 0.5% OPHTH 1 DOSE AFFEYE ONE ×5 (07:20→09:52)
[2017-06-06] MEDS ORDERED: NS 500 ML IV 500 ML IV ONE (07:22)
[2017-06-06] MEDS ORDERED: PROLENSA OPHTH 1 DOSE AFFEYE ONE (07:31)
[2017-06-06] MEDS ORDERED: ALPHAGAN-P OPHTH 1 DOSE AFFEYE ONE (07:32)
[2017-06-06] MEDS ORDERED: AK-DILATE 2.5% OPHTH 1 DOSE OP ONE ×3 (07:33→07:35)
[2017-06-06] MEDS ORDERED: CYCLOGYL 1% OPHTH 1 DOSE OP ONE ×3 (07:33→07:35)
[2017-06-06] MEDS ORDERED: MYDRIACIL OPHTH 1 DOSE AFFEYE ONE ×3 (07:33→07:35)
[2017-06-06] MEDS ORDERED: BETADINE OPHTH SOLN 5% EACHEYE ONE (09:26)
[2017-06-06] MEDS ORDERED: DUOVISC IO ONE (09:39)
[2017-06-06] MEDS ORDERED: BSS OPHTH (PLAIN) 500 ML with VANCOMYCIN HCL 500 MG VIAL 25 MG, ADRENALINE CHL INJ 1 MG IR ONE ×3 (09:39)
[2017-06-06] MEDS ORDERED: ADRENALINE CHL INJ IJ ONE (09:39)
[2017-06-06] MEDS ORDERED: XYLOCAINE-MPF 1% IJ ONE (09:39)
[2017-06-06 10:51] VITALS: BP 119/68
[2017-06-06] MEDS ORDERED: DIPRIVAN VIAL ONE (14:01)
== END 2017-06-06 10:20 | disposition home or self-care (01) ==
LOC: SURG1 06:50
PROVIDERS: ATTEND Ophthalmology
PROC: 08RJ3JZ Replacement of Right Lens with Synthetic Substitute, Percutaneous Approach (ICD-10-PCS; principal; 2017-06-06 11:15)
PROC: 08DJ3ZZ Extraction of Right Lens, Percutaneous Approach (ICD-10-PCS; principal; 2017-06-06 11:15)
DX: H25.11 Age-related nuclear cataract, right eye (principal); H52.221 Regular astigmatism, right eye
CPT/HCPCS: A4217; J0170; J3370; J3490

== ENCOUNTER → 2018-03-13 | Outpatient (CLI) | payer OTHER ==
[2018-03-13 16:20] LABS: BASOPHILS # (AUTO) 0.1 X10^3/uL (0.0-0.1); BASOPHILS % (AUTO) 1.2 % (0.2-1.0); EOSINOPHILS # (AUTO) 0.2 x10^3/uL (0.0-0.2); EOSINOPHILS % (AUTO) 3.2 % (0.9-2.9); HEMATOCRIT 36.8 % (36.0-47.0); HEMOGLOBIN 12.9 g/dL (12.0-16.0); LYMPHOCYTES # (AUTO) 2.9 X10^3/uL (1.3-2.9); LYMPHOCYTES % (AUTO) 40.1 % (21.0-51.0); MEAN CORPUSCULAR HEMOGLOBIN 31.4 pg (27.0-34.0); MEAN CORPUSCULAR VOLUME 89.5 fL (80.0-100.0); MONOCYTES # (AUTO) 0.5 x10^3/uL (0.3-0.8); MONOCYTES % (AUTO) 6.3 % (0.0-13.0); NEUTROPHILS # (AUTO) 3.6 x10^3/uL (2.2-4.8); NEUTROPHILS % (AUTO) 49.2 % (42.0-75.0); PLATELET COUNT 235 X10^3/uL (150.0-450.0); RED BLOOD COUNT 4.11 X10^6/uL (3.5-5.4); RED CELL DISTRIBUTION WIDTH 12.1 % (11.6-16.5); WHITE BLOOD COUNT 7.3 X10^3/uL (3.6-10.0)
[2018-03-13 16:39] LABS: ALANINE AMINOTRANSFERASE 25 Units/L (12-78); ALBUMIN 4.2 g/dL (3.4-5.0); ALKALINE PHOSPHATASE 59 Units/L (46-116); ASPARTATE AMINO TRANSFERASE 29 Units/L (15-37); BLOOD UREA NITROGEN 20 mg/dL (7-18); CALCIUM 9.1 mg/dL (8.5-10.1); CARBON DIOXIDE 28.1 mmol/L (21-32); CHLORIDE 101 mmol/L (98-107); CHOLESTEROL 292 mg/dL (0-200); CREATININE 0.98 mg/dL (0.55-1.02); FREE T4 (FREE THYROXINE) 0.91 ng/dL (0.76-1.46); HDL CHOLESTEROL 42 mg/dL (40-60); SODIUM 139 mmol/L (136-145); T4 (THYROXINE) 6.3 ug/dL (4.7-13.3); TRIGLYCERIDES 168 mg/dL (0-150); TSH (3RD GENERATION) 0.694 uIU/mL (0.358-3.74); eGFR BLACK RACES > 60 (>60); eGFR NON BLACK RACES 60 (>60)
== END ==
LOC: LAB 15:46
PROVIDERS: ATTEND Nurse Practitioner Family
DX: I10 Essential (primary) hypertension (principal); Z79.899 Other long term (current) drug therapy
CPT/HCPCS: 36415; 80053; 80061; 84436; 84439; 84443; 85025

== ENCOUNTER 2018-03-14 03:01 | Emergency (ER) | payer OTHER ==
[2018-03-14 03:19] VITALS: BMI 23.8
--- NOTE | 2018-03-14 03:37 | DR.GENAD ---
HPI - PCP Primary Care Physician: RENITA - Complaint/Symptoms Chief Complaint Doctors Comments: Patient presents with complaint of left side shaking. Chief Complaint:: CHEST PAIN - Source History Provided: Patient - Mode of Arrival Mode of Arrival: Wheelchair - Timing Onset of Chief Complaint: 03/14/18 PMH - PMH Past Medical History: Yes Past Medical History: Anemia, Arthritis, CVA, Dyslipidemia, GERD, Hypertension Past Surgical History: Yes Surgical History: Appendectomy, Hysterectomy - Family History History of Family Medical Conditions: No - Social History Does patient currently use any type of tobacco product: No Have you used tobacco products in the last 12 months: No Type of Tobacco Use: None Does any household member use tobacco: No Alcohol Use: None Do you use any recreational Drugs:: No Lives With: Family Lives Where: Home - infectious screening In the last 2 months have you had wt loss of >10#?: NO Have you had fever, night sweats or hemotysis?: No Have you traveled outside the country in the last 6 months?: No Isolation: Standard ROS - Review of Systems Eyes: No Symptoms Reported ENTM: No Symptoms Reported Respiratoy: No Symptoms Reported Cardiovascular: No Symptoms Reported Gastrointestinal/Abdominal: No Symptoms Reported Genitourinary: No Symptoms Reported Neurological: No Symptoms Reported Musculoskeletal: No Symptoms Reported Integumentary: No Symptoms Reported Hematologic/Lymphatic: No Symptoms Reported Endocrine: No Symptoms Reported Psychiatric: No Symptoms Reported All Other Systems: Reviewed and Negative PE - Vital Signs Vitals: Temperature 97.9 F Pulse Rate [Apical] 62 Pulse Rate 75 Respiratory Rate 20 Blood Pressure [Left Arm] 101/56 Blood Pressure [Right Arm] 123/61 Blood Pressure 188/74 O2 Sat by Pulse Oximetry 97 - General Limitations: No Limitations General Appearance: Alert, In No Apparent Distress - Head Head Exam: Normal Inspection, Atraumatic - Eyes Eye exam: Normal Appearance, PERRL, EOMI - ENT ENT Exam: Normal Exam External Ear Exam: Normal External Inspection, Auricular Hematoma TM/Canal Exam: Bilateral Normal Nose Exam: Normal Nose Exam, Sinus Tenderness Mouth Exam: Normal Inspection, Drooling Throat Exam: Normal Inspection - Neck Neck Exam: Normal Inspection, Full ROM - Chest Chest Inspection: Normal Inspection, Symmetric Chest Wall Rise - Respiratory Respiratory Exam: Normal Lung Sounds Bilat Respiratory Exam: Bilateral Clear to Auscultation - Cardiovascular Cardiovascular Exam: Regular Rate, Normal Rhythm - Abdominal Exam Abdominal Exam: Normal Inspection, Normal Bowel Sounds Abdominal Tenderness: negative: RUQ, RLQ, LUQ, LLQ, Epigastrium, Suprapubic, Diffuse, Mild, Moderate, Severe, Other - Extremities Extremities Exam: Normal Inspection, Full ROM - Back Back Exam: Normal Inspection - Neurologic Neurological Exam: Alert, Oriented X3, CN II-XII Intact - Psychiatric Psychiatric Exam: Normal Affect - Skin Skin Exam: Warm, Dry, Intact Course - Reevaluation 1st: Improved ROR - Labs Reviewed Result Diagrams: 03/14/18 05:20 03/14/18 05:20 Laboratory: WBC 5.3 X10^3/uL (3.6-10.0) 03/14/18 05:20 RBC 3.96 X10^6/uL (3.5-5.4) 03/14/18 05:20 Hgb 12.5 g/dL (12.0-16.0) 03/14/18 05:20 Hct 35.5 % (36.0-47.0) L 03/14/18 05:20 MCV 89.6 fL (80.0-100.0) 03/14/18 05:20 MCH 31.6 pg (27.0-34.0) 03/14/18 05:20 MCHC 35.3 g/dL (33.0-35.0) H 03/14/18 05:20 RDW 12.3 % (11.6-16.5) 03/14/18 05:20 Plt Count 223 X10^3/uL (150.0-450.0) 03/14/18 05:20 MPV 10.1 fL (7.4-11.0) 03/14/18 05:20 Neut % (Auto) 49.0 % (42.0-75.0) 03/14/18 05:20 Lymph % (Auto) 37.0 % (21.0-51.0) 03/14/18 05:20 [place] % (Auto) 8.9 % (0.0-13.0) 03/14/18 05:20 Eos % (Auto) 4.0 % (0.9-2.9) H 03/14/18 05:20 Baso % (Auto) 1.1 % (0.2-1.0) H 03/14/18 05:20 Neut # (Auto) 2.6 x10^3/uL (2.2-4.8) 03/14/18 05:20 Lymph # (Auto) 2.0 X10^3/uL (1.3-2.9) 03/14/18 05:20 [place] # (Auto) 0.5 x10^3/uL (0.3-0.8) 03/14/18 05:20 Eos # (Auto) 0.2 x10^3/uL (0.0-0.2) 03/14/18 05:20 Baso # (Auto) 0.1 X10^3/uL (0.0-0.1) 03/14/18 05:20 Absolute Nucleated RBC 0.0 /100WBC 03/14/18 05:20 Sodium 136 mmol/L (136-145) 03/14/18 05:20 Corrected Sodium 138 mmol/L (136-145) 03/14/18 05:20 Potassium 3.3 mmol/L (3.5-5.1) L 03/14/18 05:20 Chloride 98 mmol/L (98-107) 03/14/18 05:20 Carbon Dioxide 27.3 mmol/L (21-32) 03/14/18 05:20 BUN 24 mg/dL (7-18) H 03/14/18 05:20 Creatinine 1.01 mg/dL (0.55-1.02) 03/14/18 05:20 Est GFR (MDRD) Af Amer > 60 (>60) 03/14/18 05:20 Est GFR (MDRD) Non-Af 58 (>60) L 03/14/18 05:20 Glucose 173 mg/dL (65-99) H 03/14/18 05:20 Calcium 8.6 mg/dL (8.5-10.1) 03/14/18 05:20 Corrected Calcium TNP 03/14/18 05:20 Total Bilirubin 0.20 mg/dL (0.2-1.0) 03/14/18 05:20 AST 25 Units/L (15-37) 03/14/18 05:20 ALT 24 Units/L (12-78) 03/14/18 05:20 Alkaline Phosphatase 57 Units/L (46-116) 03/14/18 05:20 Creatine Kinase 172 Units/L (26-192) 03/14/18 05:20 CK-MB (CK-2) 2.2 ng/mL (0-4.0) 03/14/18 05:20 CK/CKMB % Calc 1.3 % (<4) 03/14/18 05:20 Troponin I < 0.02 ng/mL (0-1.5) 03/14/18 05:20 Total Protein 8.1 g/dL (6.4-8.2) 03/14/18 05:20 Albumin 3.7 g/dL (3.4-5.0) 03/14/18 05:20 Globulin 4.4 g/dL (2.5-4.5) 03/14/18 05:20 Albumin/Globulin Ratio 0.8 Ratio (1.1-2.1) L 03/14/18 05:20 - XRAY XRAY Interpreted by: Radiologist (Chest: No acute abnormality) - Diagnosis Discharge Problem: Hypokalemia - Discharge Plan Condition: Stable - Follow ups/Referrals Follow ups/Referrals: PRESTON MARAVILLA [Primary Care Provider] - 3 days - Instructions
--- NOTE | 2018-03-14 04:06 | RAD ---
AP chest Indication: Tachycardia. Comparison: 02/13/2017. Findings: Chronic interstitial lung change are noted however there is no focal airspace opacity, pleu ral effusion or pneumothorax. Heart size is normal. No acute osseous abnormality. Impression: No acute cardiopulmonary abnormality or change from prior exam. Reported By:
[2018-03-14 05:27] LABS: BASOPHILS # (AUTO) 0.1 X10^3/uL (0.0-0.1); BASOPHILS % (AUTO) 1.1 % (0.2-1.0); EOSINOPHILS # (AUTO) 0.2 x10^3/uL (0.0-0.2); HEMATOCRIT 35.5 % (36.0-47.0); HEMOGLOBIN 12.5 g/dL (12.0-16.0); MEAN CORPUSCULAR HEMOGLOBIN 31.6 pg (27.0-34.0); MEAN CORPUSCULAR HGB CONC 35.3 g/dL (33.0-35.0); MEAN CORPUSCULAR VOLUME 89.6 fL (80.0-100.0); MEAN PLATELET VOLUME 10.1 fL (7.4-11.0); MONOCYTES # (AUTO) 0.5 x10^3/uL (0.3-0.8); MONOCYTES % (AUTO) 8.9 % (0.0-13.0); NEUTROPHILS # (AUTO) 2.6 x10^3/uL (2.2-4.8); PLATELET COUNT 223 X10^3/uL (150.0-450.0); RED BLOOD COUNT 3.96 X10^6/uL (3.5-5.4); RED CELL DISTRIBUTION WIDTH 12.3 % (11.6-16.5); WHITE BLOOD COUNT 5.3 X10^3/uL (3.6-10.0)
[2018-03-14 05:48] LABS: BLOOD UREA NITROGEN 24 mg/dL (7-18); CALCIUM 8.6 mg/dL (8.5-10.1); CARBON DIOXIDE 27.3 mmol/L (21-32); CHLORIDE 98 mmol/L (98-107); COR NA(FOR HYPERGLY) 138 mmol/L (136-145); CREATININE 1.01 mg/dL (0.55-1.02); SODIUM 136 mmol/L (136-145); TROPONIN I < 0.02 ng/mL (0-1.5); eGFR BLACK RACES > 60 (>60); eGFR NON BLACK RACES 58 (>60)
[2018-03-14 05:53] LABS: ALANINE AMINOTRANSFERASE 24 Units/L (12-78); ALBUMIN 3.7 g/dL (3.4-5.0); ALKALINE PHOSPHATASE 57 Units/L (46-116); ASPARTATE AMINO TRANSFERASE 25 Units/L (15-37); CKMB % 1.3 % (<4); CREATINE KINASE 172 Units/L (26-192); CREATINE KINASE MB 2.2 ng/mL (0-4.0); TOTAL PROTEIN 8.1 g/dL (6.4-8.2)
[2018-03-14 06:06] VITALS: BP 101/56
[2018-03-14] MEDS ORDERED: K-LYTE EFFERVESCENT ONE (06:22)
[2018-03-14] MEDS ORDERED: K-LYTE EFFERVESCENT PO ONE (06:27)
[2018-03-14] MEDS ORDERED: K-LYTE EFFERVESCENT PO SCH (07:00)
== END 2018-03-14 07:19 | disposition home or self-care (01) ==
LOC: ER 03:01
DX: E87.6 Hypokalemia (principal); R94.31 Abnormal electrocardiogram [ECG] [EKG]
CPT/HCPCS: 36415; 71045; 80053; 82550; 82553; 84484; 85025; 93005; 93010; 99282; 99283

== ENCOUNTER → 2018-03-22 | Outpatient (CLI) | payer OTHER ==
[2018-03-14 06:06] VITALS: BP 101/56
[2018-03-22 13:35] LABS: T4 (THYROXINE) 6.5 ug/dL (4.7-13.3); TSH (3RD GENERATION) 0.409 uIU/mL (0.358-3.74)
== END ==
LOC: LAB 12:49
PROVIDERS: ATTEND Internal Medicine Cardiovascular Disease
DX: R00.2 Palpitations (principal)
CPT/HCPCS: 36415; 84436; 84443; 84480

== ENCOUNTER 2022-05-05 10:26 | Observation (INO) ==
[2022-05-05 13:12] VITALS: BMI 24.3
--- NOTE | 2022-05-05 13:39 | DR.H&P ---
H&P - History & Physical for Day of: H&P Date: 05/05/22 - Chief Complaint Chief Complaint: AMS - History of Present Illness History of Present Illness: PT IS 71 WF DIRECT ADMIT FROM DR NUGENT OFFICE FOR MEDICAL CLEARANCE FOR BEHAVIOR HEALTH PLACEMENT. PT HAS HX OF MILD VASCULAR DEMENTIA NORMALLY CONTROLLED ON MEDICATION. FAMILY REPORTS FAMILY HAS HAD AGITATION, INSOMNIA, HALLUCINATIONS AND AGGRESSIVE BEHAVIOR. PT ATTEMPTED TO "RUN AWAY" FROM HOME BY WALKING DOWN THE [address]. PT HAS PMH OF CVA, HTN, OA, PIERRE, MDD. PT ADMITTED FOR TREATMENT OF ACUTE ILLNESS. - Past Medical History Past Medical History: Hypertension, Dyslipidemia, Schizophrenia, Dementia, CVA Additional Medical History: Vision Deficit, Previous Blood Transfusion - Past Surgical History Surgical History: Appendectomy, Hysterectomy - Family History Family Medical History: Cancer, [place], Hypertension - Social History Does patient currently use any type of tobacco product: No Have you used tobacco products in the last 12 months: No Type of Tobacco Use: None Does any household member use tobacco: No Alcohol Use: None Drug Use: None - Medications Home Medications: No Known Drug Allergies Allergy (Verified 07/16/21 06:52) - Review of Systems Constitutional: Weakness, Malaise Eyes: No Symptoms Reported ENT: No Symptoms Reported Respiratory: No Symptoms Reported Cardiovascular: No Symptoms Reported Gastrointestinal: Other (POOR APPETITE) Genitourinary: No Symptoms Reported Musculoskeletal: No Symptoms Reported Skin: No Symptoms Reported Neurological: Confusion - Physical Exam Vital Signs: Pulse Rate 72 Respiratory Rate 15 Blood Pressure [Left Arm] 145/82 O2 Sat by Pulse Oximetry 97 Oriented: Normal Eyes: Normal Ear: Normal Nose: Normal Throat: Normal Respiratory: RLL Diminished, LLL Diminished Cardiovascular: Tachycardia : Normal Auscultation: Bowel Sounds: Normal Palpation: Normal Tenderness: Normal Musculoskeletal: Back:Lumbar, Tender (CSPINE) Psychiatric: Anxiety, Depression, Agitation Mood Description: Anxious Speech Pattern: Clear (INAPPROPRIATE) - Assessment/Plan (1) AMS (altered mental status) Status: Acute Plan: ADMIT, CT HEAD ON ADMISSION. ADMISSION LABS, EKG AND CXR ON ADMISSION. VERIFY HOME MEDICATION, BP MONITORING (2) Vascular dementia of acute onset without behavioral disturbance Status: Acute (3) GERD (gastroesophageal reflux disease) Qualifiers: Esophagitis presence: esophagitis presence not specified Qualified Code(s): K21.9 - Gastro-esophageal reflux disease without esophagitis Status: Chronic (4) Hyperlipemia Qualifiers: Hyperlipidemia type: mixed hyperlipidemia Qualified Code(s): E78.2 - Mixed hyperlipidemia Status: Chronic (5) History of CVA (cerebrovascular accident) Status: Chronic (6) HTN (hypertension) Qualifiers: Hypertension type: essential hypertension Qualified Code(s): I10 - Essential (primary) hypertension Status: Acute - Allergies Allergies/Adverse Reactions: Allergies Allergy/AdvReac Type Severity Reaction Status Date / Time No Known Drug Allergies Allergy Verified 07/16/21 06:52
[2022-05-05 13:48] LABS: BASOPHILS # (AUTO) 0.1 X10^3/uL (0.0-0.1); BASOPHILS % (AUTO) 1.1 % (0.2-1.0); EOSINOPHILS # (AUTO) 0.2 x10^3/uL (0.0-0.2); EOSINOPHILS % (AUTO) 3.6 % (0.9-2.9); HEMATOCRIT 38.1 % (36.0-47.0); HEMOGLOBIN 13.3 g/dL (12.0-16.0); LYMPHOCYTES # (AUTO) 2.4 X10^3/uL (1.3-2.9); LYMPHOCYTES % (AUTO) 36.4 % (21.0-51.0); MEAN CORPUSCULAR HGB CONC 34.9 g/dL (33.0-35.0); MEAN CORPUSCULAR VOLUME 91.8 fL (80.0-100.0); MEAN PLATELET VOLUME 9.6 fL (7.4-11.0); MONOCYTES # (AUTO) 0.5 x10^3/uL (0.3-0.8); MONOCYTES % (AUTO) 7.5 % (0.0-13.0); NEUTROPHILS # (AUTO) 3.4 x10^3/uL (2.2-4.8); NEUTROPHILS % (AUTO) 51.4 % (42.0-75.0); RED BLOOD COUNT 4.15 X10^6/uL (3.5-5.4); RED CELL DISTRIBUTION WIDTH 12.5 % (11.6-16.5); WHITE BLOOD COUNT 6.7 X10^3/uL (3.6-10.0)
[2022-05-05 14:01] LABS: ALANINE AMINOTRANSFERASE 29 Units/L (12-78); ALBUMIN 3.5 g/dL (3.4-5.0); ALKALINE PHOSPHATASE 109 Units/L (46-116); ASPARTATE AMINO TRANSFERASE 26 Units/L (15-37); BLOOD UREA NITROGEN 17 mg/dL (7-18); CALCIUM 8.8 mg/dL (8.5-10.1); CHLORIDE 105 mmol/L (98-107); CREATININE 0.78 mg/dL (0.55-1.02); SODIUM 138 mmol/L (136-145); TOTAL PROTEIN 7.9 g/dL (6.4-8.2); eGFR NON BLACK RACES > 60 (>60)
--- NOTE | 2022-05-05 15:06 | CT ---
HISTORYAMSSTUDYBRAIN W/O CONCOMPARISONSeptember 2019TECHNIQUEAxial non-contrast images of the head were obtained with coronal and sagittal reformats provided.Radiation dose: 1256.30 mGy-cm total DLPFINDINGSEncephalomalacia in the posterior left parietal lobe.No abnormal areas of acute attenuation in the brain parenchyma.Lam-white differentiation remains intact.No intracranial, extra-axial, fluid collection.No hemorrhage.Periventricular chronic microvascular disease.No mass, mass effect or midline shift.Age related brain parenchymal global atrophy.No ventriculomegaly.No acute fracture.Sinuses are well aerated.Mastoid air cells are well aerated.Globes and intra-orbital contents are unremarkable.IMPRESSIONNo acute intracranial abnormality identified.Electronically signed by: Arben Nazario (May 05, 2022 15:05:24)
--- NOTE | 2022-05-05 15:13 | RAD ---
HISTORYCAD, AMSSTUDYCHEST, 1 VIEWCOMPARKettering [facility] Main Campusuary 2020TECHNIQUEChest radiographic imaging, AP portable projection, 1 imageFINDINGSNo cardiomegaly.No focal airspace disease.No pleural effusion.No pneumothorax.No acute osseous abnormality.IMPRESSIONNo imaging findings of acute cardiopulmonary disease.Electronically signed by: Arben Nazario (May 05, 2022 15:13:15)
[2022-05-05 17:30] LABS: BILIRUBIN,URINE NEGATIVE (NEGATIVE); BLOOD/HEMOGLOBIN,URINE 1+ (NEGATIVE); GLUCOSE, URINE NEGATIVE (NEGATIVE); KETONES,URINE NEGATIVE (NEGATIVE); LEUKOCYTE ESTERASE ,URINE NEGATIVE (NEGATIVE); NITRITES,URINE NEGATIVE (NEGATIVE); PROTEIN,URINE NEGATIVE (NEGATIVE); UROBILINOGEN,URINE NORMAL (NORMAL)
[2022-05-05 17:37] LABS: APPEARANCE,URINE CLEAR (CLEAR); BACTERIA,URINE TRACE /HPF (NEGATIVE); COLOR,URINE PALE YELLOW (YELLOW); SQUAMOUS EPITHELIAL CELL,UR RARE /HPF (NEGATIVE)
[2022-05-05] MEDS ORDERED: PEPCID TAB 40 MG PO PRN (19:17)
[2022-05-05] MEDS ORDERED: NORCO 5/325 MG TAB PO PRN (19:19)
[2022-05-05] MEDS: ZANAFLEX PO SCH (20:19)
[2022-05-05] MEDS ORDERED: SINGULAIR TAB 10 MG PO SCH (21:00)
[2022-05-05] MEDS ORDERED: BUSPAR PO SCH (21:00)
[2022-05-05] MEDS ORDERED: ZOCOR TAB 40 MG PO SCH (21:00)
[2022-05-05] MEDS ORDERED: ELAVIL PO SCH (21:00)
[2022-05-05] MEDS: DILANTIN CAP 100 MG EXT REL PO SCH (21:30)
[2022-05-05] MEDS ORDERED: RESTORIL CAP 15 MG PO PRN (22:54)
[2022-05-06 04:55] LABS: BASOPHILS # (AUTO) 0.1 X10^3/uL (0.0-0.1); BASOPHILS % (AUTO) 0.8 % (0.2-1.0); EOSINOPHILS # (AUTO) 0.3 x10^3/uL (0.0-0.2); EOSINOPHILS % (AUTO) 3.8 % (0.9-2.9); HEMATOCRIT 38.2 % (36.0-47.0); HEMOGLOBIN 13.2 g/dL (12.0-16.0); LYMPHOCYTES # (AUTO) 3.8 X10^3/uL (1.3-2.9); LYMPHOCYTES % (AUTO) 45.1 % (21.0-51.0); MEAN CORPUSCULAR HEMOGLOBIN 31.8 pg (27.0-34.0); MEAN CORPUSCULAR HGB CONC 34.6 g/dL (33.0-35.0); MEAN CORPUSCULAR VOLUME 91.7 fL (80.0-100.0); MEAN PLATELET VOLUME 10.5 fL (7.4-11.0); MONOCYTES # (AUTO) 0.7 x10^3/uL (0.3-0.8); MONOCYTES % (AUTO) 7.9 % (0.0-13.0); NEUTROPHILS # (AUTO) 3.6 x10^3/uL (2.2-4.8); NEUTROPHILS % (AUTO) 42.4 % (42.0-75.0); RED BLOOD COUNT 4.16 X10^6/uL (3.5-5.4); RED CELL DISTRIBUTION WIDTH 12.4 % (11.6-16.5); WHITE BLOOD COUNT 8.5 X10^3/uL (3.6-10.0)
[2022-05-06 05:14] LABS: ALANINE AMINOTRANSFERASE 28 Units/L (12-78); ALBUMIN 3.2 g/dL (3.4-5.0); ALKALINE PHOSPHATASE 103 Units/L (46-116); ASPARTATE AMINO TRANSFERASE 25 Units/L (15-37); BLOOD UREA NITROGEN 15 mg/dL (7-18); CALCIUM 8.3 mg/dL (8.5-10.1); CHLORIDE 102 mmol/L (98-107); COR CA(FOR HYPOALB) 8.9 mg/dL (8.5-10.1); COR NA(FOR HYPERGLY) 138 mmol/L (136-145); CREATININE 0.78 mg/dL (0.55-1.02); SODIUM 138 mmol/L (136-145); TOTAL PROTEIN 7.6 g/dL (6.4-8.2); eGFR NON BLACK RACES > 60 (>60)
[2022-05-06] MEDS: DILANTIN CAP 100 MG EXT REL PO SCH ×2 (05:19→15:49)
[2022-05-06] MEDS ORDERED: NS 1,000 ML IV 1,000 ML IV SCH (09:00)
[2022-05-06] MEDS ORDERED: ROCEPHIN VIAL 1 GRAM 1 G in NS 100 ML IV 100 ML IV SCH (09:00)
[2022-05-06] MEDS ORDERED: ROCEPHIN 1 GRAM IV PREMIX 1 G/50 ML IV.SOLN. IV SCH (09:00)
[2022-05-06] MEDS ORDERED: PriLOSEC PO SCH (09:00)
[2022-05-06] MEDS ORDERED: LEXAPRO PO SCH (09:00)
[2022-05-06] MEDS ORDERED: TRICOR TAB 160 MG PO SCH (09:00)
[2022-05-06] MEDS ORDERED: ZESTRIL TAB 20 MG ONE (09:01)
[2022-05-06] MEDS ORDERED: LEXAPRO ONE (09:02)
[2022-05-06] MEDS: ZANAFLEX PO SCH (09:08)
[2022-05-06] MEDS: ZESTRIL TAB 20 MG PO SCH ×2 (09:08→09:09)
[2022-05-06] MEDS ORDERED: NORVASC TAB 5 MG PO SCH (14:00)
[2022-05-06 16:13] VITALS: BP 115/57
[2022-05-06] MEDS ORDERED: COUMADIN TAB 2 MG (JANTOVEN) PO SCH (21:00)
== END 2022-05-06 17:30 ==
LOC: ICU
PROVIDERS: ADMIT Internal Medicine; ATTEND Internal Medicine